=== PATIENT | male | born 2000 | race Hispanic/Latino ===

== ENCOUNTER 2023-11-05 09:23 | Emergency (ER) | payer BC ==
[2023-11-05 10:54] LABS: Bilirubin Neg (Negative); Blood, Urine 150 (Negative); Clarity Clear (Clear); Glucose, Urine (Dipstick) Normal (Negative); Ketone, Urine Negative (Negative); Leukocyte Negative (Negative); Nitrite Negative (Negative); Protein, Urine (Dipstick) 100 mg/dl (Neg-Trace); Specific Gravity, Urine 1.015 (1.005-1.030); Urobilinogen Normal mg/dL (Less than 2)
[2023-11-05 11:18] LABS: Bacteria/HPF None Seen HPF (None Seen); CAUTI Indications for Culture Pelvic or flank pain; Squamous Epithelial 0-3 HPF (0-3); WBC/HPF None Seen HPF (0-3)
[2023-11-05 11:20] LABS: Urine Culture Reflex No No
[2023-11-05 16:54] LABS: Chlam.trachomatis by PCR,Urine Not Detected (NotDetected); GC N.gonorrhoeae PCR,UrineVOID Not Detected (NotDetected)
== END 2023-11-05 12:29 | disposition home or self-care (01) ==
LOC: CSHERS 09:23
DX: N50.812 Left testicular pain (principal); R31.9 Hematuria, unspecified; Z55.6 Problems related to health literacy
CPT/HCPCS: 74176; 76870; 81001; 87491; 87591; 93976